=== PATIENT | male | born 1995 | race Caucasian/White ===

== ENCOUNTER 2019-03-27 01:46 | Emergency (ER) | payer OTHER ==
[~2019-03-27] VITALS: Ht 177.8 cm; Wt 75.0 kg
[2019-03-27 02:25] LABS: BASO # 0.1 10^3/uL (0.0-0.2); BASO % 0.6 % (0.0-1.0); EOS # 0.3 10^3/uL (0.0-0.5); EOS % 3.2 % (0.0-3.0); HEMATOCRIT 42.5 % (42.0-52.0); HEMOGLOBIN 14.4 g/dl (13.5-17.5); LYMPH # 3.5 10^3/uL (1.5-5.0); LYMPH % 40.7 % (24.0-44.0); MEAN CORPUSCULAR HEMOGLOBIN 32.1 pg (27.0-33.0); MEAN CORPUSCULAR HGB CONC 33.9 g/dl (32.0-36.5); MEAN CORPUSCULAR VOLUME 94.7 fl (80.0-96.0); MONO # 0.8 10^3/uL (0.0-0.8); MONO % 9.1 % (0.0-5.0); NEUTROPHILS # 3.9 10^3/uL (1.5-8.5); NEUTROPHILS % 46.3 % (36.0-66.0); PLATELET COUNT, AUTOMATED 276 10^3/uL (150-450); RED BLOOD COUNT 4.49 10^6/uL (4.30-6.10); WHITE BLOOD COUNT 8.5 10^3/uL (4.0-10.0)
[2019-03-27 03:03] LABS: BLOOD UREA NITROGEN 13 MG/DL (7-18); CALCIUM LEVEL 9.4 MG/DL (8.5-10.1); CARBON DIOXIDE LEVEL 29 MEQ/L (21-32); CHLORIDE LEVEL 108 MEQ/L (98-107); CK-MB VALUE MASS 1.3 NG/ML (<3.6); CPK CREATINE PHOSPHOKINASE 212 U/L (39-308); CREATININE FOR GFR 1.15 MG/DL (0.70-1.30); FREE THYROXINE INDEX 3.1 % (1.4-3.8); GLOMERULAR FILTRATION RATE > 60.0 (>60); GLUCOSE, FASTING 99 MG/DL (70-100); MAGNESIUM LEVEL 2.1 MG/DL (1.8-2.4); MB/CK RELATIVE INDEX 0.61 (< OR =4); POTASSIUM SERUM 4.4 MEQ/L (3.5-5.1); SODIUM LEVEL 143 MEQ/L (136-145); T UPTAKE 40 % (33-40); THYROXINE (T4) 7.8 UG/DL (4.5-12.0); TROPONIN I < 0.02 NG/ML (< 0.10)
[2019-03-27 03:14] VITALS: BP 132/78
--- NOTE | 2019-03-27 07:10 | ECGEPIP ---
[facility] - ED Test Date: 2019-03-27 Pat Name: JAYDEN RAGSDALE Department: Room: - Gender: Male Dental Laboratory Technician: : [id number] Requested By: FABIOLA ADAMS Order Number: [id number] Reading MD: Fouzia Veliz Measurements Intervals [place] Rate: 52 P: 64 [place]: 131 QRS: 80 QRSD: 98 T: 33 QT: 386 QTc: 359 Interpretive Statements SINUS BRADYCARDIA NONSPECIFIC T-WAVE ABNORMALITY NO PRIOR Electronically Signed on 03-27-2019 7:10:40 EDT by Fouzia Veliz
== END 2019-03-27 03:16 | disposition home or self-care (01) ==
LOC: M ED 01:46
DX: I49.9 Cardiac arrhythmia, unspecified (principal); F06.4 Anxiety disorder due to known physiological condition; R00.1 Bradycardia, unspecified; R94.31 Abnormal electrocardiogram [ECG] [EKG]; Z88.5 Allergy status to narcotic agent